=== PATIENT | male | born 1945 | race Caucasian/White ===

== ENCOUNTER 2019-05-05 12:28 | Emergency (ER) | payer MEDICARE ==
[~2019-05-05] VITALS: Ht 167.6 cm; Wt 82.0 kg
[2019-05-05 12:31] VITALS: BP 139/80
--- NOTE | 2019-05-05 12:44 | NUR ---
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
[2019-05-05] MEDS ORDERED: CARBAMIDE PEROXIDE EAR DROPS 6.5%, 15ML ONE (13:08)
[2019-05-05] MEDS ORDERED: CARBAMIDE PEROXIDE EAR DROPS 6.5%, 15ML RIGHT EAR ONE (13:30)
--- NOTE | 2019-05-05 14:47 | NUR ---
Patient given discharge instructions and they have confirmed that they understand the instructions. Patient ambulatory with steady gait.
== END 2019-05-05 15:00 | disposition home or self-care (01) ==
LOC: ED 14:40
DX: B34.9 Viral infection, unspecified (principal); H61.21 Impacted cerumen, right ear
CPT/HCPCS: 69209; 71046; 99283